=== PATIENT | female | born 1970 | race Caucasian/White ===

== ENCOUNTER 2017-07-11 17:55 | Emergency (ER) | payer OTHER ==
[~2017-07-11] VITALS: Ht 157.5 cm; Wt 81.6 kg
[2017-07-11 18:05] VITALS: BP 125/88
[2017-07-11 20:18] LABS: Urine Bacteria NONE SEEN /hpf (None Seen); Urine Blood 1+ /uL (Negative); Urine Mucus FEW (None Seen); Urine Specific Gravity 1.022 (1.001-1.035); Urine WBC 4 /hpf (0 - 5)
[2017-07-11 20:37] LABS: Basophils # (auto) 0.1 uL; Basophils % (auto) 0.4 % (0.0-2.0); Eosinophils # (auto) 0.3 uL; Eosinophils % (auto) 1.9 % (0.0-7.0); Hematocrit 37.1 % (36.0-46.0); Hemoglobin 11.3 g/dL (12.2-16.2); Lymphocytes # (auto) 5.4 uL; Lymphocytes % (auto) 39.4 % (10.0-50.0); Mean Corpuscular Hemoglobin 26.1 pg (28.0-32.0); Mean Corpuscular Hgb Conc. 30.5 g/dL (32.0-36.0); Mean Corpuscular Volume 85.5 fL (80.0-100.0); Monocytes # (auto) 0.7 uL; Neutrophils # (auto) 7.3 uL; Neutrophils % (auto) 53.3 % (37.0-80.0); Nucleated Red Blood Cells % 0.2 %; Platelet Count (auto) 323 10^3/uL (140-450); Red Blood Cells 4.35 10^6/uL (4.0-5.20); White Blood Cell 13.7 10^3/uL (4.4-10.8)
[2017-07-11 20:59] LABS: Alanine Aminotransferase 14 U/L (13-56); Albumin 3.3 g/dL (3.4-5.0); Alkaline Phosphatase 72 U/L (45-117); Anion Gap 8 (5-15); Aspartate Aminotransferase 11 U/L (15-37); BUN/Creatinine Ratio 13.2; Bilirubin, Total 0.2 mg/dL (0.2-1.0); Blood Urea Nitrogen 9 mg/dL (7-18); Calcium 8.4 mg/dL (8.5-10.1); Carbon Dioxide 23 mmol/L (21-32); Chloride 106 mmol/L (98-107); GFR African American 118 mL/min; GFR Non-African American 98 mL/min; Glucose 97 mg/dL (74-106); Magnesium 2.3 mg/dL (1.6-2.6); Potassium 4.2 mmol/L (3.5-5.1); Sodium 137 mmol/L (136-145); Total Protein 7.4 g/dL (6.4-8.2)
== END 2017-07-11 22:35 | disposition left against medical advice (07) ==
LOC: ER 18:09
DX: R42 Dizziness and giddiness (principal); Z53.21 Procedure and treatment not carried out due to patient leaving prior to being seen by health care provider
CPT/HCPCS: 36415; 80053; 81001; 83735; 84484; 85025; 93005